=== PATIENT | female | born 1980 | race Hispanic/Latino ===

== ENCOUNTER 2018-03-21 22:54 | Emergency (ER) | payer SELFPAY ==
[~2018-03-21] VITALS: Ht 162.6 cm; Wt 124.3 kg
[~2018-03-21 22:54] MED LIST: GLIPIZIDE5 MG PO; LISINOPRIL10 MG PO; METFORMIN HCL1000 MG PEG; METFORMIN HCL500 MG PO; METOPROLOL TART25 MG PO; PEPCID20 MG PO; PHENTERMINE H37.5 MG PO; REGLAN10 MG PO; XARELTO10 MG PEG
--- OUTSIDE RECORDS SUMMARY | 2018-03-21 22:57 | XMS REPORT ---
[facility] Address Unknown Phone Unavailable Care Team Providers Care Piping Engineer Name Role Phone SANIYA CONNELL Unavailable Unavailable Payers Payer Name Policy Type Policy Number Effective Date Expiration Date Problems This patient has no known problems. Allergies, Adverse Reactions, Alerts Allergy Name Allergy Type Status Severity Reaction(s) Onset Date Inactive Date Treating Clinician Comments No Known Allergies DA Active U 2018-03-12 00:00:00 No Known Allergies DA Active U 2017-10-24 00:00:00 No Known Allergies DA Active U 2016-04-10 00:00:00 Medications This patient has no known medications. Results Test Description Test Time Test Comments Text Results Atomic Results Result Comments - CTA CHEST 2018-03-12 12:08:00 Name: LAKISHA ANTHONY [facility] : 1980 Age/S: 37 / F [address] [facility] Unit #: [id number] Loc: [place] [address] Phys: Jana Dela Cruz MD Acct: [id number] Dis Date: Status: REG ER PHONE #: [phone] Exam Date: 03/12/2018 1144 FAX #: [phone] Reason: chest pain going to back EXAMS: CPT CODE: [id number] CTA CHEST 18553 HISTORY: Chest pain going to the back and right-sided numbness. COMPARISON: None available. CTA CHEST: 3-D images NOT available. 100 mL of Isovue 370. Automated exposure control. No pulmonary embolism. Unremarkable suboptimally opacified aorta without aneurysm or dissection. Unopacified neck vasculature is nondiagnostic. Unremarkable SVC. Thyroid glands are poorly visible but normal. Esophageal wall is not thickened. No pathologic adenopathy. Cardiac silhouette is within normal limits. No pericardial effusion is noted. Visualized upper abdomen demonstrating patient is post cholecystectomy. The subcutaneous tissues and the musculature are normal in appearance. No lytic or blastic lesions noted within the bony skeleton. The lungs are clear of infiltrates, effusion or co ngestion. Azygos lobe. Dependent changes. No bronchiectasis, honeycombing or fibrosis or endobronchial lesions. IMPRESSION: No acute intrathoracic pathology. at 1208 Reported and signed by: Roberto Martinez M.D. CC: Jana Dela Cruz MD Technologist:AMAN DIAS RT(R) CTDI: DLP: Trnscb Date/Time: 03/12/2018 (1208) [email or web address] Orig Print D/T: S: 03/12/2018 (1218) CTDI: DLP: PAGE 1 Signed Report B-TYPE NATRIURETIC PEPTIDE 2018-03-12 09:53:00 B-TYPE NATRIURETIC PEPTIDE (test code=BNP) 3.17 pgram/mL 0-100 COMPREHENSIVE METABOLIC [id number] 09:48:00* Test Item Value Reference Range Comments SODIUM (test code=NA) 137 mmol/L 136-145 POTASSIUM (test code=K) 3.5 mmol/L 3.5-5.1 CHLORIDE (test code=CL) 103.0 mmol/L 98-107 CARBON DIOXIDE (test code=CO2) 27.0 mmol/L 21-32 ANION GAP (test code=GAP) 10.5 10-20 GLUCOSE (test code=GLU) 240 mg/dL 74-106 BLOOD UREA NITROGEN (test code=BUN) 19 mg/dL 7-18 GLOMERULAR FILTRATION RATE (test code=GFR) > 60 mL/min >=60 Estimated GFR by using Modified MDRD formula.Chronic kidney disease is defined as either kidney damageor GFR <60 mL/min/1.73 m2 for >3 months. CREATININE (test code=CREAT) 0.70 mg/dL 0.55-1.02 Note change in reference range due to change in reagent. BUN/CREATININE RATIO (test code=BUN/CREA) 26.4 10-20 TOTAL PROTEIN (test code=PROT) 7.6 gram/dL 6.4-8.2 ALBUMIN (test code=ALB) 3.2 g/dL 3.4-5.0 GLOBULIN (test code=GLOB) 4.4 gram/dL 2.7-4.2 ALBUMIN/GLOBULIN RATIO (test code=A/G) 0.7 0.75-1.50 CALCIUM (test code=CA) 8.9 mg/dL 8.5-10.1 BILIRUBIN TOTAL (test code=BILT) 0.40 mg/dL 0.0-1.0 SGOT/AST (test code=AST) 19 IUnit/L 15-37 SGPT/ALT (test code=ALT) 40 IUnit/L 12-78 ALKALINE PHOSPHATASE TOTAL (test code=ALKP) 124 IUnit/L 45-117 Note change in reference range due to change in reagent. [id number] 09:48:00* Test Item Value Reference Range Comments LIPASE (test code=LIP) 124 U/L 73.0-393.0 [id number] 09:48:00* Test Item Value Reference Range Comments CKMB (test code=CKMBT) 1.0 ng/mL 0-6.0 [id number] 09:48:00* Test Item Value Reference Range Comments TROPONIN-I (test code=TROPI) <0.015 ng/mL 0-0.045 URINALYSIS [id number] 09:39:00* Test Item Value Reference Range Comments UA COLOR (test code=COLU) YELLOW YELLOW UA APPEARANCE (test code=APPU) CLEAR CLEAR UA GLUCOSE DIPSTICK (test code=DGLUU) 50 (Trace) mg/dL NEGATIVE UA BILIRUBIN DIPSTICK (test code=BILU) NEGATIVE mg/dL NEGATIVE UA KETONE DIPSTICK (test code=KETU) Negative mg/dL NEGATIVE UA SPECIFIC GRAVITY (test code=SGU) 1.025 1.001-1.035 UA BLOOD DIPSTICK (test code=PAM) Negative NEGATIVE UA PH DIPSTICK (test code=GREG) 5.0 5.0-8.0 UA PROTEIN DIPSTICK (test code=PROU) 100 (2+) mg/dL NEGATIVE UA UROBILINIOGEN DIPSTICK (test code=URO) NEGATIVE mg/dL NEGATIVE UA NITRITE DIPSTICK (test code=GIANNA) NEGATIVE NEGATIVE UA LEUKOCYTE ESTERASE W REFLEX (test code=LEUUR) TRACE NEGATIVE UA WBC (test code=WBCU) 11-20 #/HPF 0-5 UA RBC (test code=RBCU) 0-2 #/HPF 0-5 UA EPITHELIAL CELLS (test code=EPIU) MOD per HPF FEW UA BACTERIA (test code=BACU) FEW #/HPF NONE UA MUCUS (test code=MUCU) FEW #/LPF FEW Urine Source? Clean CatchUR HCG [id number] 09:39:00* Test Item Value Reference Range Comments UR HCG QUAL (test code=HCGQLU) NEGATIVE This HCGQL test is NOT applicable for MALE patients.Check with nurse about probable order error.If Tumor Marker Test needed, nurse should order test "HCGTU"(Test #550.24369) Urine Source? Clean CatchCBC W/AUTO [id number] 09:26:00* Test Item Value Reference Range Comments WHITE BLOOD CELL (test code=WBC) 9.8 K/mm3 4.5-12.5 RED BLOOD CELL (test code=RBC) 5.56 mill/mm3 3.7-5.2 HEMOGLOBIN (test code=HGB) 14.0 gram/dL 11.5-15.5 HEMATOCRIT (test code=HCT) 44.1 % 36.0-46.0 MEAN CELL VOLUME (test code=MCV) 79.3 fL 80-98 MEAN CELL HGB (test code=MCH) 25.2 picogram 27.0-33.0 MEAN CELL HGB CONCETRATION (test code=MCHC) 31.7 gram/dL 33.0-36.0 RED CELL DISTRIBUTION WIDTH (test code=RDW) 13.2 % 11.6-16.2 RED CELL DISTRIBUTION WIDTH SD (test code=RDW-SD) 37.3 fL 37.0-51.0 PLATELET COUNT (test code=PLT) 218 K/mm3 150-450 MEAN PLATELET VOLUME (test code=MPV) 9.6 fL 6.7-11.0 NEUTROPHIL % (test code=NT%) 49.3 % 39.0-69.0 IMMATURE GRANULOCYTE % (test code=IG%) 0.3 % 0.0-5.0 LYMPHOCYTE % (test code=LY%) 42.0 % 25.0-55.0 MONOCYTE % (test code=MO%) 5.1 % 0.0-10.0 EOSINOPHIL % (test code=EO%) 2.9 % 0.0-5.0 BASOPHIL % (test code=BA%) 0.4 % 0.0-1.0 NUCLEATED RBC % (test code=NRBC%) 0.0 % 0-0 NEUTROPHIL # (test code=NT#) 4.85 K/mm3 1.8-7.7 IMMATURE GRANULOCYTE # (test code=IG#) 0.03 x10 3/uL 0-0.03 LYMPHOCYTE # (test code=LY#) 4.13 K/mm3 1.0-5.0 MONOCYTE # (test code=MO#) 0.50 K/mm3 0-0.8 EOSINOPHIL # (test code=EO#) 0.29 K/mm3 0.0-0.5 BASOPHIL # (test code=BA#) 0.04 K/mm3 0.0-0.2 NUCLEATED RBC # (test code=NRBC#) 0.00 K/mm3 0.0-0.1 MANUAL DIFF REQUIRED (test code=MDIFF) NO URINALYSIS [id number] 09:13:00* Test Item Value Reference Range Comments UA COLOR (test code=COLU) YELLOW YELLOW UA APPEARANCE (test code=APPU) CLEAR CLEAR UA GLUCOSE DIPSTICK (test code=DGLUU) 50 (Trace) mg/dL NEGATIVE UA BILIRUBIN DIPSTICK (test code=BILU) NEGATIVE mg/dL NEGATIVE UA KETONE DIPSTICK (test code=KETU) Negative mg/dL NEGATIVE UA SPECIFIC GRAVITY (test code=SGU) 1.025 1.001-1.035 UA BLOOD DIPSTICK (test code=PAM) Negative NEGATIVE UA PH DIPSTICK (test code=GREG) 5.0 5.0-8.0 UA PROTEIN DIPSTICK (test code=PROU) 100 (2+) mg/dL NEGATIVE UA UROBILINIOGEN DIPSTICK (test code=URO) NEGATIVE mg/dL NEGATIVE UA NITRITE DIPSTICK (test code=GIANNA) NEGATIVE NEGATIVE UA LEUKOCYTE ESTERASE W REFLEX (test code=LEUUR) TRACE NEGATIVE UA WBC (test code=WBCU) per HPF 0-5 Urine Source? Clean CatchUR HCG [id number] 09:13:00* Test Item Value Reference Range Comments UR HCG QUAL (test code=HCGQLU) NEGATIVE This HCGQL test is NOT applicable for MALE patients.Check with nurse about probable order error.If Tumor Marker Test needed, nurse should order test "HCGTU"(Test #550.42210) Urine Source? Clean CatchURINALYSIS [id number] 09:12:00* Test Item Value Reference Range Comments UA COLOR (test code=COLU) YELLOW YELLOW UA APPEARANCE (test code=APPU) CLEAR CLEAR UA GLUCOSE DIPSTICK (test code=DGLUU) 50 (Trace) mg/dL NEGATIVE UA BILIRUBIN DIPSTICK (test code=BILU) NEGATIVE mg/dL NEGATIVE UA KETONE DIPSTICK (test code=KETU) Negative mg/dL NEGATIVE UA SPECIFIC GRAVITY (test code=SGU) 1.025 1.001-1.035 UA BLOOD DIPSTICK (test code=PAM) Negative NEGATIVE UA PH DIPSTICK (test code=GREG) 5.0 5.0-8.0 UA PROTEIN DIPSTICK (test code=PROU) 100 (2+) mg/dL NEGATIVE UA UROBILINIOGEN DIPSTICK (test code=URO) NEGATIVE mg/dL NEGATIVE UA NITRITE DIPSTICK (test code=GIANNA) NEGATIVE NEGATIVE UA LEUKOCYTE ESTERASE W REFLEX (test code=LEUUR) TRACE NEGATIVE UA WBC (test code=WBCU) per HPF 0-5 Urine Source? Clean CatchUR HCG [id number] 09:12:00* Test Item Value Reference Range Comments UR HCG QUAL (test code=HCGQLU) Urine Source? Clean Catch- XR CHEST 2 [id number] 09:03:00 FAX: Jana Moore [phone] [place]: St: REG Name: Al MONTOYALAKISHA TREVINO [facility] : [birth year] Age/S: 37/F [address] Unit #: [id number] Loc: [place] [address] Phys: Jana Dela Cruz MD Acct: [id number] Dis Date: Status: REG ER PHONE #: [phone] Exam Date: 03/12/2018 0850 FAX #: [phone] Reason: chest pain EXAMS: CPT CODE: [id number] XR CHEST 2 V 78709 HISTORY: Chest pain. COMPARISON: October 24, 2017. AP and lateral view of the chest: No acute infiltrates, effusion or congestion. Azygos lobe. Suboptimal inspiration. Dependent changes. Cardiac silhouette is normal. IMPRESSION: No acute infiltrates, effusion or congestion. at 0903 Reported and signed by: Roberto Martinez M.D. CC: Jana Dela Cruz MD Technologist: Claudio Arora RT(R) Trnscrd Date/Time/By: 03/12/2018 (0903) : By: [email or web address] Orig Print D/T: S: (0907) PAGE 1 Signed Rep ort - CT HEAD/BRAIN W/O [id number] 09:02:00 Name: LAKISHA ANTHONY [facility] : 1980 Age/S: 37 / F [address] Unit #: [id number] Loc: [place] [address] Phys: Star Dela Cruz MD Acct: [id number] Di s Date: Status: REG ER PHONE #: Exam Date: 03/12/2018 0857 FAX #: Reason: intermittant left sided numbness EXAMS: CPT CODE: [id number] CT HEAD/BRAIN W/O CONT 79335 HISTORY: Intermittent lef t-sided numbness. COMPARISON: CT scan from March 132017. CT brain without contrast: Automated exposure control. No acute intracranial bleeds or extra-axial collections and there is no acute territorial vascular infarction. Mild cerebellar ectopia of no cli nical consequence. The hogan-white matter differentiation is preser soham. The sulci, gyri, ventricles and subarachnoid spaces and the basilar c isterns are normal for patient's age. No herniation or hydrocephalus or mi dline shift is noted. Fourth ventricle remains midline. Port ions of the visualized paranasal sinuses are unremarkable. No obvi ous bony calvarial defect is noted. IMPRESSION: No acute intracranial bleeds or extra-axial collections. No acute territorial vascular infarction. No herniation or hydroc ephalus or midline shift. at 0902 Reported and signed by: Roberto Martinez M.D. CC: Jana Dela Cruz MD Technologist:Elpidio Maldonado RT(R),(MR),(CT) CTDI: DLP: Trnscb Date/Time: 03/12/2018 (0902) t.[email or web address].TH4 Orig Print D/T: S: 03/12/2018 (0906) CTDI: DLP: PAGE 1 Signed Report CHEST [address] [facility] [address] [address] Patient Name: LAKISHA ANTHONY MR #: [id number] : 1980 Age/Sex: 36/F Req #: [id number] Adm Physician: SANIYA CONNELL MD Ordered by: JG JARVIS MD Report #: [id number] Location: [facility] Room/Bed: [place] [address] Procedure: [id number] [id number] DX/CHEST 2 VIEWS Exam Date: 12/07/16 Exam Edmundo e: 2251 REPORT STATUS: Signed EXAMINATION: CHEST 2 VIEWS [place]NA CATION: Palpitations. COMPARISON: None FINDINGS: TU BES and LINES: None. LUNGS: Lungs are not well inflated. There are bibas ilar atelectasis. There is no evidence of pneumonia or pulmonary edema. PLEURA: No pleural effusion or pneumothorax. HEART AND MEDIASTINUM: The cardiomediastinal silhouette is unremarkable. BONES AND SOFT TISSUES: No acute osseous lesion. Soft tissues are unremarkable. UPPER ABDOMEN: N o free air under the diaphragm. There are cholecystectomy clips. IMPRESSI ON: No acute thoracic abnormality. Signed by: Ghazal oTvar 12/07/2016 11:22 PM Dictated By: KARRIE SOOD MD [facility] Signed By: KARRIE SOOD MD on 12/07/162321 Transcribed By: MARCOS suarez 12/07/162321 COPY TO: JG JARVIS MD
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
[2018-03-21] MEDS ORDERED: ONDANSETRON HCL INJ 2MG/ML 2ML 2 MG/ML VIAL IV STA (23:44)
[2018-03-21] MEDS ORDERED: PANTOPRAZOLE 40 MG 10ML VIAL IV STA (23:44)
[2018-03-21] MEDS ORDERED: LIDOCAINE VISC 2% SOLN 15 ML UDC PO ONE (23:45)
[2018-03-21] MEDS ORDERED: MAGNESIUM/ALUMINUM/SIMETHICONE 30 ML UDC PO ONE (23:45)
[2018-03-21] MEDS ORDERED: BELLADONNA ALK/PHENOBARBITAL 5 ML UDC PO ONE (23:45)
[2018-03-22 00:22] LABS: BASOPHILS % 0.2 % (0.0-1.0); EOSINOPHILS # (AUTO) 0.2 (0.0-0.4); HEMATOCRIT 41.3 % (34.2-44.1); HEMOGLOBIN 14.2 g/dL (12.0-16.0); LYMPHOCYTES # (AUTO) 3.6 (1.0-3.2); LYMPHOCYTES % 40.4 % (18.0-39.1); MEAN CORPUSCULAR HGB CONC 34.4 g/dL (31-35); MEAN CORPUSCULAR VOLUME 75.5 fL (81-99); MONOCYTES # (AUTO) 0.5 (0.2-0.8); MONOCYTES % 5.7 % (4.4-11.3); NEUTROPHILS # (AUTO) 4.5 (2.1-6.9); NEUTROPHILS % 51.5 % (38.7-80.0); PLATELET COUNT 207 x10e3/uL (140-360); RED BLOOD COUNT 5.47 x10e6/uL (3.6-5.1); RED CELL DISTRIBUTION WIDTH 13.1 % (11.7-14.4)
[2018-03-22 00:29] LABS: INR 0.86; PARTIAL THROMBOPLASTIN TIME 25.2 seconds (23.8-35.5); PROTHROMBIN TIME 12.5 seconds (11.9-14.5)
--- NOTE | 2018-03-22 00:32 | Diagnostic Imaging Report ---
CHEST SINGLE (PORTABLE), 03/21/2018 11:17 PM Technique: CHEST SINGLE (PORTABLE) Comparison: 12/07/2016 Clinical history: Chest pain Findings: Stable appearance of the heart, mediastinum, lungs and pleural spaces given differences in technique. Incidental azygos fissure. Impression: 1. Lines/Tubes: None 2. No acute abnormality. Signed by: Dr Lee Ann Dey MD on 03/22/2018 12:29 AM
[2018-03-22 00:36] LABS: ALANINE AMINOTRANSFERASE 32 IU/L (0-55); ALBUMIN 3.5 g/dL (3.5-5.0); ALKALINE PHOSPHATASE 112 IU/L (40-150); ANION GAP 14.6 mmol/L (8-16); BLOOD UREA NITROGEN 11 mg/dL (7-26); BUN/CREATININE RATIO 14 (6-25); CALCIUM 9.7 mg/dL (8.4-10.2); CARBON DIOXIDE 27 mmol/L (22-29); CHLORIDE 98 mmol/L (98-107); CREATINE KINASE 47 IU/L (29-168); EST GLOMERULAR FILTRATION RATE > 60 ML/MIN (60-); GLUCOSE 308 mg/dL (74-118); POTASSIUM 3.6 mmol/L (3.5-5.1); SODIUM 136 mmol/L (136-145)
[2018-03-22 00:38] LABS: AMYLASE 82 U/L (25-125); LIPASE 34 U/L (8-78)
[2018-03-22 01:24] LABS: CLARITY,URINE CLEAR (CLEAR); COLOR,URINE YELLOW (YELLOW); LEUKOCYTE ESTERASE ,URINE NEGATIVE (NEGATIVE); NITRITE,URINE NEGATIVE (NEGATIVE); PROTEIN,URINE DIPSTICK 3+ (NEGATIVE)
[2018-03-22 01:25] LABS: BACTERIA,URINE FEW /HPF; BILIRUBIN,URINE NEGATIVE (NEGATIVE); EPITHELIAL CELLS,URINE FEW /LPF; KETONES,URINE NEGATIVE (NEGATIVE); RBC,URINE 0-5 /HPF (0-5); URINE UROBILINOGEN 0.2 mg/dL (0.2 - 1); WBC,URINE (MAN) 0-5 /HPF (0-5)
[2018-03-22 01:41] VITALS: BP 144/83
== END 2018-03-22 02:00 | disposition home or self-care (01) ==
LOC: ER 22:54
DX: R07.89 Other chest pain (principal); K21.9 Gastro-esophageal reflux disease without esophagitis; E11.65 Type 2 diabetes mellitus with hyperglycemia; I10 Essential (primary) hypertension
CPT/HCPCS: 36415; 71045; 80053; 81001; 82150; 82550; 82553; 83690; 84484; 85025; 85610; 85730; 93005; 96374; 96376; 99284; C9113; J2405

== ENCOUNTER 2020-06-10 00:51 | Observation (INO) | payer OTHER ==
[2020-06-10] VITALS (11 sets, daily range): BP systolic 118–150; BP diastolic 66–84
[~2020-06-10] VITALS: Ht 162.6 cm; Wt 108.9 kg
[~2020-06-10 00:51] MED LIST changes: +DEXILANT30 MG PO; +GABAPENTIN100 MG PO; +LISINOPRIL-HCT1 EACH PO; +METFORMIN HCL1000 MG PO; +NASONEX17 GM; +NOVOLOG MI100 UNIT/1 SC; +SINGULAIR10 MG PO; +ULTRAM50 MG PO; +VITAMIN D250 MCG PO; +VITAMIN D32400 UNIT/ PO; +ZOFRAN4 MG PO
[2020-06-10] MEDS ORDERED: SODIUM CHLORIDE 0.9% 1000ML 1,000 ML IV STA (01:00)
[2020-06-10 01:28] LABS: BASOPHILS % 0.5 % (0.0-1.0); EOSINOPHILS # (AUTO) 0.2 (0.0-0.4); EOSINOPHILS % 2.2 % (0.0-6.0); HEMATOCRIT 40.8 % (34.2-44.1); HEMOGLOBIN 13.5 g/dL (12.0-16.0); LYMPHOCYTES # (AUTO) 3.9 (1.0-3.2); LYMPHOCYTES % 48.9 % (18.0-39.1); MEAN CORPUSCULAR HEMOGLOBIN 25.4 pg (28-32); MEAN CORPUSCULAR HGB CONC 33.1 g/dL (31-35); MEAN CORPUSCULAR VOLUME 76.7 fL (81-99); MONOCYTES # (AUTO) 0.6 (0.2-0.8); MONOCYTES % 7.1 % (4.4-11.3); NEUTROPHILS # (AUTO) 3.3 (2.1-6.9); NEUTROPHILS % 41.1 % (38.7-80.0); PLATELET COUNT 178 x10e3/uL (140-360); RED BLOOD COUNT 5.32 x10e6/uL (3.6-5.1); RED CELL DISTRIBUTION WIDTH 13.7 % (11.7-14.4)
[2020-06-10 01:46] LABS: CLARITY,URINE CLEAR (CLEAR); COLOR,URINE YELLOW (YELLOW); KETONES,URINE NEGATIVE (NEGATIVE); LEUKOCYTE ESTERASE ,URINE NEGATIVE (NEGATIVE); NITRITE,URINE NEGATIVE (NEGATIVE); PROTEIN,URINE DIPSTICK NEGATIVE (NEGATIVE); URINE UROBILINOGEN 0.2 mg/dL (0.2 - 1)
[2020-06-10 01:48] LABS: ALANINE AMINOTRANSFERASE 21 IU/L (0-55); ALBUMIN 3.6 g/dL (3.5-5.0); ALBUMIN/GLOBULIN RATIO 1.1 (0.8-2.0); ALKALINE PHOSPHATASE 156 IU/L (40-150); BLOOD UREA NITROGEN 14 mg/dL (7-26); BUN/CREATININE RATIO 17 (6-25); CALCIUM 8.6 mg/dL (8.4-10.2); CARBON DIOXIDE 25 mmol/L (22-29); CHLORIDE 97 mmol/L (98-107); CREATINE KINASE 84 IU/L (29-168); CREATININE, SERUM 0.83 mg/dL (0.57-1.11); EST GLOMERULAR FILTRATION RATE > 60 ML/MIN (60-); SODIUM 135 mmol/L (136-145)
[2020-06-10 01:49] LABS: GLUCOSE 554 mg/dL (74-118)
[2020-06-10 01:54] LABS: BACTERIA,URINE RARE /HPF; WBC,URINE (MAN) 0-5 /HPF (0-5)
[2020-06-10 01:55] LABS: EPITHELIAL CELLS,URINE FEW /LPF
[2020-06-10] MEDS ORDERED: INSULIN REGULAR, HUMAN 100 UNIT/1 ML 3ML VIAL IV STA (02:16)
[2020-06-10] MEDS ORDERED: ASPIRIN 325 MG TAB PO STA (03:32)
[2020-06-10] MEDS ORDERED: ONDANSETRON HCL INJ 2MG/ML 2ML 2 MG/ML VIAL IV PRN (03:45)
[2020-06-10] MEDS ORDERED: ASPIRIN 81 MG CHEW TAB PO ONE ×2 (03:45→04:30)
[2020-06-10] MEDS ORDERED: MORPHINE SULFATE INJ 2 MG/ML SYR IV PRN (03:45)
[2020-06-10] MEDS ORDERED: TRAMADOL HCL 50 MG TAB PO PRN (03:45)
[2020-06-10] MEDS ORDERED: ENOXAPARIN SOD INJ 60 MG/0.6 ML SYR SC STA (03:45)
[2020-06-10] MEDS ORDERED: AMIODARONE HCL 900 MG in DEXTROSE 5% 500ML 500 ML IV STA (04:07)
[2020-06-10] MEDS ORDERED: CLOPIDOGREL BISULFATE 75 MG TAB PO STA (04:13)
[2020-06-10] MEDS ORDERED: HEPARIN SOD (PORCINE) 1000 UNIT/ML SDV IV ONE (04:15)
[2020-06-10 04:20] LABS: INR 0.81; PARTIAL THROMBOPLASTIN TIME 23.8 seconds (23.8-35.5); PROTHROMBIN TIME 11.7 seconds (11.9-14.5)
[2020-06-10] MEDS ORDERED: CLOPIDOGREL BISULFATE 75 MG TAB ONE (04:24)
[2020-06-10] MEDS ORDERED: HEPARIN SOD (PORCINE) 5,000 UNIT/ML VIAL ONE (04:24)
[2020-06-10] MEDS ORDERED: SODIUM CHLORIDE 0.9% 1000ML 1,000 ML ONE (05:04)
[2020-06-10] MEDS ORDERED: HEPARIN SOD/SOD CHLORIDE 2,000 ML ONE (05:20)
[2020-06-10] MEDS ORDERED: LIDOCAINE HCL 2% LOCAL 20 ML VIAL ONE (05:20)
[2020-06-10] MEDS ORDERED: IOPAMIDOL 370 MG/ML 200 ML INFUS..BTL INJ ONE (05:21)
[2020-06-10] MEDS ORDERED: VERAPAMIL HCL 2.5 MG/ML 2 ML VIAL ONE (05:22)
[2020-06-10] MEDS ORDERED: HEPARIN SOD (PORCINE) 1000 UNIT/ML 30ML ONE (05:22)
[2020-06-10] MEDS ORDERED: MIDAZOLAM HCL 2 MG/2 ML VIAL ONE ×2 (05:22→05:34)
[2020-06-10] MEDS ORDERED: FENTANYL CITRATE/PF 100MCG/2 ML INJ ONE (05:22)
[2020-06-10] MEDS ORDERED: NITROGLYCERIN/D5W 200 MCG/ML 250 ML ONE (05:23)
[2020-06-10] MEDS ORDERED: GABAPENTIN 100 MG CAP PO SCH (09:00)
[2020-06-10] MEDS ORDERED: MAGNESIUM SULFATE 2GM/50ML 50 ML IV ONE (11:45)
[2020-06-10] MEDS ORDERED: NON-FORMULARY MEDICATION (Ondansetron Hcl* (Zofran*) 4 MG) PO PRN (12:15)
[2020-06-10] MEDS ORDERED: ASPIRIN EC81 MG PO (12:17)
[2020-06-10] MEDS ORDERED: DEXTROSE 50% SYRINGE 50 ML IV PRN (12:30)
[2020-06-10] MEDS ORDERED: METOPROLOL TARTRATE 25 MG TAB ONE (12:45)
[2020-06-10] MEDS ORDERED: GABAPENTIN 100 MG CAP PO PRN (13:00)
[2020-06-10] MEDS: METFORMIN HCL 500 MG TAB PO SCH ×2 (13:15→17:28)
[2020-06-10] MEDS: METOPROLOL TARTRATE 25 MG TAB PO SCH (13:24)
[2020-06-10] MEDS: HYDROCHLOROTHIAZIDE 25 MG TAB PO SCH (13:24)
[2020-06-10] MEDS: FUROSEMIDE INJ 10 MG/ML 2 ML VIAL IV SCH ×2 (13:24→17:28)
[2020-06-10] MEDS: LISINOPRIL 20 MG TAB PO SCH (13:25)
[2020-06-10 14:43] LABS: BASOPHILS % 0.4 % (0.0-1.0); EOSINOPHILS # (AUTO) 0.2 (0.0-0.4); EOSINOPHILS % 3.2 % (0.0-6.0); HEMATOCRIT 39.1 % (34.2-44.1); HEMOGLOBIN 13.1 g/dL (12.0-16.0); LYMPHOCYTES % 42.2 % (18.0-39.1); MEAN CORPUSCULAR HEMOGLOBIN 25.6 pg (28-32); MEAN CORPUSCULAR HGB CONC 33.5 g/dL (31-35); MEAN CORPUSCULAR VOLUME 76.4 fL (81-99); MONOCYTES # (AUTO) 0.5 (0.2-0.8); MONOCYTES % 6.3 % (4.4-11.3); NEUTROPHILS # (AUTO) 3.4 (2.1-6.9); NEUTROPHILS % 47.6 % (38.7-80.0); PLATELET COUNT 170 x10e3/uL (140-360); RED BLOOD COUNT 5.12 x10e6/uL (3.6-5.1); RED CELL DISTRIBUTION WIDTH 13.6 % (11.7-14.4)
[2020-06-10 15:03] LABS: CREATINE KINASE 43 IU/L (29-168)
[2020-06-10 15:06] LABS: ALANINE AMINOTRANSFERASE 20 IU/L (0-55); ALBUMIN 3.2 g/dL (3.5-5.0); ALKALINE PHOSPHATASE 134 IU/L (40-150); ANION GAP 13.8 mmol/L (8-16); BLOOD UREA NITROGEN 8 mg/dL (7-26); BUN/CREATININE RATIO 10 (6-25); CALCIUM 8.5 mg/dL (8.4-10.2); CARBON DIOXIDE 27 mmol/L (22-29); CHLORIDE 99 mmol/L (98-107); CREATININE, SERUM 0.78 mg/dL (0.57-1.11); EST GLOMERULAR FILTRATION RATE > 60 ML/MIN (60-); POTASSIUM 3.8 mmol/L (3.5-5.1); SODIUM 136 mmol/L (136-145)
[2020-06-10 15:14] LABS: GLUCOSE 467 mg/dL (74-118)
[2020-06-10] MEDS: INSULIN LISPRO 100 UNIT/1 ML 3ML VIAL SQ SCH ×3 (15:40→20:12)
[2020-06-10] MEDS ORDERED: INSULIN LISPRO 100 UNIT/1 ML 3ML VIAL SQ SCH (16:30)
[2020-06-10] MEDS ORDERED: TRAMADOL HCL 50 MG TAB ONE (17:40)
[2020-06-10] MEDS ORDERED: MONTELUKAST SODIUM 10 MG TAB PO SCH (21:00)
[2020-06-11] VITALS (8 sets, daily range): BP systolic 112–127; BP diastolic 65–81
[2020-06-11 05:13] LABS: BASOPHILS % 0.4 % (0.0-1.0); EOSINOPHILS # (AUTO) 0.3 (0.0-0.4); EOSINOPHILS % 3.1 % (0.0-6.0); HEMATOCRIT 42.4 % (34.2-44.1); LYMPHOCYTES # (AUTO) 3.1 (1.0-3.2); LYMPHOCYTES % 34.3 % (18.0-39.1); MEAN CORPUSCULAR HEMOGLOBIN 25.2 pg (28-32); MEAN CORPUSCULAR VOLUME 76.3 fL (81-99); MONOCYTES # (AUTO) 0.6 (0.2-0.8); MONOCYTES % 6.6 % (4.4-11.3); NEUTROPHILS # (AUTO) 4.9 (2.1-6.9); NEUTROPHILS % 55.4 % (38.7-80.0); PLATELET COUNT 175 x10e3/uL (140-360); RED BLOOD COUNT 5.56 x10e6/uL (3.6-5.1); RED CELL DISTRIBUTION WIDTH 13.6 % (11.7-14.4)
[2020-06-11 05:33] LABS: ALANINE AMINOTRANSFERASE 22 IU/L (0-55); ALBUMIN 3.3 g/dL (3.5-5.0); ALKALINE PHOSPHATASE 120 IU/L (40-150); ANION GAP 14.8 mmol/L (8-16); BLOOD UREA NITROGEN 14 mg/dL (7-26); BUN/CREATININE RATIO 21 (6-25); CALCIUM 8.9 mg/dL (8.4-10.2); CARBON DIOXIDE 28 mmol/L (22-29); CHLORIDE 97 mmol/L (98-107); CREATININE, SERUM 0.68 mg/dL (0.57-1.11); EST GLOMERULAR FILTRATION RATE > 60 ML/MIN (60-); GLUCOSE 310 mg/dL (74-118); POTASSIUM 3.8 mmol/L (3.5-5.1); SODIUM 136 mmol/L (136-145)
[2020-06-11] MEDS ORDERED: GLIPIZIDE 5 MG TAB PO SCH (07:30)
[2020-06-11] MEDS: METFORMIN HCL 500 MG TAB PO SCH ×2 (08:38→17:10)
[2020-06-11] MEDS: INSULIN LISPRO 100 UNIT/1 ML 3ML VIAL SQ SCH ×3 (08:51→17:08)
[2020-06-11] MEDS ORDERED: ASPIRIN 81 MG ENTERIC COATED PO SCH ×2 (09:00)
[2020-06-11] MEDS: METOPROLOL TARTRATE 25 MG TAB PO SCH (09:33)
[2020-06-11] MEDS: FUROSEMIDE INJ 10 MG/ML 2 ML VIAL IV SCH ×2 (09:34→17:00)
[2020-06-11] MEDS: LISINOPRIL 20 MG TAB PO SCH (09:34)
[2020-06-11] MEDS: HYDROCHLOROTHIAZIDE 25 MG TAB PO SCH (09:34)
== END 2020-06-11 18:50 | disposition home or self-care (01) ==
LOC: ER 02:25 → ERHOLD 03:35 → UNDOADMIN 03:35 → CATH LAB 05:05 → INTOOBSV 09:29 → MERGE 09:29 → CATH LAB V 09:29 → IMCU 09:31
PROVIDERS: ADMIT Internal Medicine; ATTEND Internal Medicine
DX: R07.9 Chest pain, unspecified (principal); I44.7 Left bundle-branch block, unspecified; Z68.41 Body mass index [BMI] 40.0-44.9, adult; E11.65 Type 2 diabetes mellitus with hyperglycemia; J44.9 Chronic obstructive pulmonary disease, unspecified; I10 Essential (primary) hypertension; I48.91 Unspecified atrial fibrillation; Z86.16 Personal history of COVID-19; E03.9 Hypothyroidism, unspecified; E66.01 Morbid (severe) obesity due to excess calories; E78.5 Hyperlipidemia, unspecified
CPT/HCPCS: 36415 ×2; 71045; 80053 ×2; 81001; 82550; 82553; 82948; 83036; 83735; 83880; 84484; 85025 ×2; 85610; 85730; 93005; 93306; 93458; 96372; 99285; C1725; G0378 ×2; J1644 ×2; J1940 ×2; J2001; J2250; J3010; J3475; J7030; Q9967; U0002; 99152; 99153

== ENCOUNTER 2020-09-05 22:54 | Emergency (ER) | payer SELFPAY ==
[~2020-09-05] VITALS: Ht 162.6 cm; Wt 108.9 kg
[~2020-09-05 22:54] MED LIST changes: +ASPIRIN EC81 MG PO
[2020-09-05] MEDS ORDERED: SODIUM CHLORIDE 0.9% 1000ML 1,000 ML IV ONE (23:00)
[2020-09-05] MEDS ORDERED: ONDANSETRON HCL INJ 2MG/ML 2ML 2 MG/ML VIAL IV STA (23:00)
[2020-09-05 23:09] LABS: BASOPHILS # (AUTO) 0.1 (0.0-0.1); BASOPHILS % 0.5 % (0.0-1.0); EOSINOPHILS # (AUTO) 0.5 (0.0-0.4); HEMOGLOBIN 15.4 g/dL (12.0-16.0); LYMPHOCYTES # (AUTO) 4.2 (1.0-3.2); LYMPHOCYTES % 41.7 % (18.0-39.1); MEAN CORPUSCULAR HEMOGLOBIN 25.8 pg (28-32); MEAN CORPUSCULAR HGB CONC 32.8 g/dL (31-35); MEAN CORPUSCULAR VOLUME 78.7 fL (81-99); MONOCYTES # (AUTO) 0.5 (0.2-0.8); MONOCYTES % 5.1 % (4.4-11.3); NEUTROPHILS # (AUTO) 4.8 (2.1-6.9); NEUTROPHILS % 47.4 % (38.7-80.0); PLATELET COUNT 193 x10e3/uL (140-360); RED BLOOD COUNT 5.97 x10e6/uL (3.6-5.1); RED CELL DISTRIBUTION WIDTH 13.2 % (11.7-14.4)
[2020-09-05] MEDS ORDERED: ONDANSETRON HCL INJ 2MG/ML 2ML 2 MG/ML VIAL ONE (23:12)
[2020-09-05] MEDS ORDERED: SODIUM CHLORIDE 0.9% 1000ML 1,000 ML ONE (23:12)
[2020-09-05 23:28] LABS: ALBUMIN 3.9 g/dL (3.5-5.0); ANION GAP 14.8 mmol/L (8-16); CALCIUM 9.9 mg/dL (8.4-10.2); CREATININE, SERUM 1.06 mg/dL (0.57-1.11); POTASSIUM 3.8 mmol/L (3.5-5.1)
== END 2020-09-06 00:12 | disposition home or self-care (01) ==
LOC: ER 22:57
DX: R19.7 Diarrhea, unspecified (principal); E11.65 Type 2 diabetes mellitus with hyperglycemia; I10 Essential (primary) hypertension; E03.9 Hypothyroidism, unspecified; Z85.42 Personal history of malignant neoplasm of other parts of uterus
CPT/HCPCS: 36415; 80053; 82948; 85025; 99283; J2405; J7030